=== PATIENT | female | born 1960 | race Asian ===

== ENCOUNTER 2024-01-16 14:05 | Outpatient (CLI) | payer OTHER ==
[2024-01-16] MEDS ORDERED: Iopamidol 370 76% 100 ML VIAL ONE (14:31)
== END 2024-01-16 14:06 | disposition home or self-care (01) ==
LOC: CSHCT 14:05
PROVIDERS: ATTEND Family Medicine
DX: R31.9 Hematuria, unspecified (principal); K76.9 Liver disease, unspecified; N20.0 Calculus of kidney; N28.9 Disorder of kidney and ureter, unspecified; D25.9 Leiomyoma of uterus, unspecified
CPT/HCPCS: 74178

== ENCOUNTER 2024-02-17 12:58 | Outpatient (CLI) | payer OTHER ==
[~2024-02-17 12:58] MED LIST: Magnevist 469MG/ML 20 ML VIAL ONE
== END 2024-02-17 12:59 | disposition home or self-care (01) ==
LOC: CSHMRI 12:58
PROVIDERS: ATTEND Family Medicine
DX: R31.9 Hematuria, unspecified (principal); K76.9 Liver disease, unspecified
CPT/HCPCS: 74183